=== PATIENT | male | born 1970 | race African-American/Black ===

== ENCOUNTER → 2020-05-17 | Outpatient (CLI) | payer OTHER ==
--- NOTE | 2020-05-17 16:08 | RAD ---
SHOULDER 2+V LEFT DATE: 05/17/2020 12:00 AM INDICATION: Reason: SHOULDER PAIN FOR 1 YEAR / Spl. Instructions: / History: COMPARISON: None. FINDINGS: Bones: There is no evidence of acute fracture or dislocation. Joints: The joint spaces are normal. The acromiohumeral distance is not narrowed. Miscellaneous: No abnormal soft tissue calcifications in the shoulder. IMPRESSION: Normal exam Electronically signed by: Dani Dumont MD (05/17/2020 4:05 PM) [id number]
== END ==
LOC: RAD 11:59
PROVIDERS: ATTEND Physician Assistant
DX: M25.512 Pain in left shoulder (principal)
CPT/HCPCS: 73030

== ENCOUNTER 2020-06-25 12:09 | Emergency (ER) | payer OTHER ==
[~2020-06-25] VITALS: Ht 185.4 cm; Wt 85.0 kg
[2020-06-25 12:20] VITALS: BP 134/79
[2020-06-25] MEDS ORDERED: METOCLOPRAMIDE HCL 10 MG/2 ML VIAL. IVP ONE (12:45)
[2020-06-25] MEDS ORDERED: IV NORMAL SALINE 1,000ML 1,000 ML IV ONE (12:45)
[2020-06-25] MEDS ORDERED: KETOROLAC 30 MG/ML VIAL. IVP ONE (12:45)
[2020-06-25] MEDS ORDERED: diphenhydrAMINE 50 MG/ML VIAL IVP ONE (12:45)
--- NOTE | 2020-06-25 13:22 | RAD ---
CT Head W/O Contrast: History: Reason: NON TRAUMATIC MIGRANE HEADACHE RT ORBIT AREA TO OCCIPITAL REGION Comparison: none Axial images were obtained without contrast. The sandoval and white matter appears normal and symmetrical for the patients age. There is no mass effect, extraaxial fluid collections or hydrocephalus. There is no gross bleed. There is no focal loss of sandoval-white matter distinction to suggest acute ischemia, i.e. stroke. Impression: No acute findings. RS Compliance Statement: One or more of the following individualized dose reduction techniques were utilized for this examination: 1. Automated exposure control 2. Adjustment of the mA and/or kV according to patient size 3. Use of iterative reconstruction technique Electronically signed by: Ulices Ren III, MD (06/25/2020 1:19 PM) [facility]
--- NOTE | 2020-06-25 13:44 | PHYS DOC ---
Past History Past Medical History: No Pertinent History (ASHLEY KEYES APRN) Additional Past Surgical Histo: Eye surgery as child, hernia repair, ORIF ankle (ASHLEY KEYES APRN) Alcohol Use: None (ASHLEY KEYES APRN) Adult General Chief Complaint Chief Complaint: EYE PROBLEMS HPI HPI Patient 50 yo male presents with c/o headache around rt orbit that radiated to occipital area x past 4 days, states he took 2 excedrine OTC pain meds yesterday without relief, is worried about his rt eye because it started turning red this am with mild irritation that was relieved with visine OTC eye drops. pt denies visual changes or photophobia. pt denies nausea vomiting or diarrhea, fever or c hills, nasal congestion, cough, shortness of breath or chest discomfort. pt denies need for covid testing (ASHLEY KEYES APRN) Review of Systems Review of Systems 14 body systems of review of systems have been reviewed. See HPI for pertinent positives and negative responses, otherwise all other systems are negative, nonpertinent or noncontributory. (ASHLEY KEYES APRN) Current Medications Current Medications Current Medications Medications (Trade) Dose Ordered Sig/Shanice Start Time Stop Time Status Last Admin Dose Admin Diphenhydramine HCl (Benadryl) 50 mg 1X ONCE 06/25/20 12:45 06/25/20 12:46 DC 06/25/20 12:54 50 MG Ketorolac Tromethamine (Toradol 30mg Vial) 30 mg 1X ONCE 06/25/20 12:45 06/25/20 12:46 DC 06/25/20 12:53 30 MG Metoclopramide HCl (Reglan Vial) 10 mg 1X ONCE 06/25/20 12:45 06/25/20 12:46 DC 06/25/20 12:51 10 MG Sodium Chloride 1,000 ml @ 1,000 mls/hr 1X ONCE 06/25/20 12:45 06/25/20 13:44 06/25/20 12:49 1,000 MLS/HR (ASHLEY KEYES APRN) Allergies Allergies Allergies Coded Allergies Type Severity Reaction Last Updated Verified No Known Drug Allergies 06/25/20 No (ASHLEY KEYES APRN) Physical Exam Physical Exam Constitutional: Well developed, well nourished, no acute distress, non-toxic appearance. [] HENT: Normocephalic, atraumatic, bilateral external ears normal, oropharynx moist, no oral exudates, nose normal. [] Eyes: PERRLA, EOMI, no discharge. conjunctival irritation and redness rt eye 2 o'clock to 4 o;clock position, no tearing or drainage noted. pupils 3mm. Neck: Normal range of motion, no tenderness, supple, no stridor. [] Cardiovascular:Heart rate regular rhythm, no murmur [] Lungs & Thorax: Bilateral breath sounds clear to auscultation [] Abdomen: Bowel sounds normal, soft, no tenderness, no masses, no pulsatile masses. [] Skin: Warm, dry, no erythema, no rash. [] Back: No tenderness, no CVA tenderness. [] Extremities: No tenderness, no cyanosis, no clubbing, ROM intact, no edema. [] Neurologic: Alert and oriented X 3, normal motor function, normal sensory function, no focal deficits noted. [] Psychologic: Affect normal, judgement normal, mood normal. [] (ASHLEY KEYES APRN) Current Patient Data Vital Signs Vital Signs Date Time Temp Pulse Resp B/P (MAP) Pulse Ox O2 Delivery O2 Flow Rate FiO2 12/5/20 12:20 98.6 90 18 134/79 (97) 99 Room Air (ASHLEY KEYES APRN) EKG EKG [] (ASHLEY KEYES APRN) Radiology/Procedures Radiology/Procedures [] (ASHLEY KEYES APRN) Heart Score Risk Factors: Risk Factors: DM, Current or recent (<one month) smoker, HTN, HLP, family history of CAD, obesity. Risk Scores: Risk Factors: DM, Current or recent (<one month) smoker, HTN, HLP, family hist ory of CAD, obesity. (ASHLEY KEYES APRN) Course & Med Decision Making Course & Med Decision Making Pertinent Labs and Imaging studies reviewed. (See chart for details) 50 yo male vitals reviewed, presents with headache and rt eye redness. visual acuity performed by ED nursing OS 20/25, OD 20/30, OU 20/20. physical exam rt eye without visual deficits, conjunctivitis vs subconjunctival hemorrhage, headache cocktail IV initiated, CT head read negative for acute process by house radiologist interpretation, revaluation of pt, pain improved from 9/10 to 0/10 pain, pt reports full relief. Discussed home treatment of rt eye conjunctiva, pt gave verbal understanding of home care instructions, RTER precautions and concerns, had no other questions or concerns , pt d/c to home without incident. Dx, Migrane Headache without aura, subconjunctival hemorrhage rt eye vs conjunctivitis. (ASHLEY KEYES APRN) Course & Med Decision Making I have reviewed the SINGING TEACHER's note and plan of care. I personally saw and evaluated patient and repeated certain aspects of history and physical exam. I agree with the clinical impression, plan, and disposition. (MELVA ADAM DO) Dragon Disclaimer Dragon Disclaimer This electronic medical record was generated, in whole or in part, using a voice recognition dictation system. (ASHLEY KEYES APRN) Departure Departure: Impression: Primary Impression: Migraine Additional Impression: Conjunctivitis Disposition: 01 DC HOME SELF CARE/HOMELESS Condition: IMPROVED Referrals: ANGY CENTENO (PCP) Patient Instructions: Conjunctivitis (Viral and Bacterial), Migraine Headache Additional Instructions: You were seen today for a migraine headache, you also have a conjunctivitis of the right eye, I believe this is viral in nature, please use warm compresses to your eye 2-3 times per day for approximately 10 minutes each time, use good handwashing while your eye remains red, follow-up with an shower maid if the redness continues, return to the emergency department for worsening symptoms, a sudden change in vision, or other concerns. EMERGENCY DEPARTMENT GENERAL DISCHARGE INSTRUCTIONS Thank you for coming to [facility] (ED) today and trusting us with you care. We trust that you had a positivie experience in our Emergency Department. If you wish to speak to the department management, you may call the director at [phone]. YOUR FOLLOW UP INSTRUCTIONS ARE FOLLOWS: 1. Do you have a private Doctor? If you do not have a private doctor, please ask for a resource list of physicians or clinics that may be able to assist you with follow up care. 2. The Emergency Physician has interpreted your x-rays. The X-Ray specialist will also review them. If there is a change in the findings, you will be notified in 48 hours when at all possible. 3. A lab test or culture has been done, your results will be reviewed and you will be notified if you need a change in treatment. ADDITIONAL INSTRUCTIONS AND INFORMATION: 1. Your care today has been supervised by a physician who is specially trained in emergency care. Many problems require more than one evaluation for a complete diagnosis and treatment. We recommend that you schedule your follow up appointment as recommended to ensure complete treatment of you illness or injury. If you are unable to obtain follow up care and continue to have a problem, or if your condition worsens, we recommend that you return to the ED. 2. We are not able to safely determine your condition over the phone nor are we able to give sound medical advice over the phone. For these safety reasons, if you call for medical advice we will ask you to come to the ED for further evaluation. 3. If you have any questions regarding these discharge instructions please call the ED at [phone]. SAFETY INFORMATION: In the interest of safety, wellness, and injury prevention; we encourage you to wear your sealbelt, if you smoke; quite smoking, and we encourage family to use a protective helmet for bicycling and other sporting events that present an increased risk for head injury. IF YOUR SYMPTOMS WORSEN OR NEW SYMPTOMS DEVELOP, OR YOU HAVE CONCERNS ABOUT YOUR CONDITION; OR IF YOUR CONDITION WORSENS WHILE YOU ARE WAITING FOR YOUR FOLLOW UP APPOINTMENT; EITHER CONTACT YOUR PRIMARY CARE DOCTOR, THE PHYSICIAN WHOSE NAME AND NUMBER YOU WERE GIVEN, OR RETURN TO THE ED IMMEDIATELY. Problem Qualifiers Primary Impression: Migraine Migraine type: without aura Status migrainosus presence: without status migrainosus Intractability: not intractable Qualified Codes: G43.009 - Migraine without aura, not intractable, without status migrainosus Additional Impression: Conjunctivitis Conjunctivitis type: acute Acute conjunctivitis type: unspecified Latera lity: right Qualified Codes: H10.31 - Unspecified acute conjunctivitis, right eye ASHLEY KEYES APRN Jun 25, 2020 13:44 MELVA ADAM DO Jun 26, 2020 13:38
== END 2020-06-25 13:55 | disposition home or self-care (01) ==
LOC: ER 12:09
DX: G43.009 Migraine without aura, not intractable, without status migrainosus (principal); H10.31 Unspecified acute conjunctivitis, right eye
CPT/HCPCS: 70450; 96361; 96374; 96375; 99284; J1200; J1885; J2765; J7030

== ENCOUNTER 2020-08-01 09:24 | Emergency (ER) | payer SELFPAY ==
[~2020-08-01] VITALS: Ht 182.9 cm; Wt 85.0 kg
[2020-08-01 09:33] VITALS: BP 111/78
[2020-08-01] MEDS ORDERED: PRED20TA PO (09:49)
[2020-08-01] MEDS ORDERED: CYCL5TAB PO (09:49)
--- NOTE | 2020-08-01 09:49 | PHYS DOC ---
Past History Past Medical History: No Pertinent History Past Surgical History: No Surgical History Additional Past Surgical Histo: Eye surgery as child, hernia repair, ORIF ankle Alcohol Use: None Adult General Chief Complaint Chief Complaint: BACK PAIN - NO INJURY HPI HPI Patient is a 50-year-old male presenting for back pain. Injury was at work 3 days ago when he was bending over and lifting boxes. Patient states after long day of heavy lifting, he had tightness and pain on the left lower portion of his back. This is progressed and worsened over the weekend. Patient finally tried to intervene this morning and took x2 doses of unknown strength ibuprofen with minimal relief prompting him to come into our ER for evaluation. He has no history of spinal surgeries, no red flags for back pain, no fever, no saddle anesthesia or bladder or bowel incontinence. Twisting motions and direct palpation make worse Review of Systems Review of Systems Fourteen body systems of review of systems have been reviewed. See HPI for pertinent positives and negative responses, other marquez all other systems are negative, non-pertinent or non-contributory Allergies Allergies Allergies Coded Allergies Type Severity Reaction Last Updated Verified No Known Drug Allergies 06/25/20 No Physical Exam Physical Exam Constitutional: Well developed, well nourished, no acute distress, non-toxic appearance. HENT: Normocephalic, atraumatic, bilateral external ears normal, oropharynx moist, no oral exudates, nose normal. Eyes: PERRLA, EOMI, conjunctiva normal, no discharge. Neck: Normal range of motion, no tenderness, supple, no stridor. Cardiovascular: Heart rate regular per monitor Lungs & Thorax: No respiratory distress or accessory muscle use, bilateral chest rise Abdomen: Abdomen soft, non-tender, bowel sounds present in all quadrants, no guarding or rebound, nonacute abdomen. Skin: Warm, dry, no erythema, no rash. Back: No midline tenderness, no CVA tenderness. Palpable tight muscle belly left side of midline and paralumbar area reproducing exact pain patient is feeling without radiation, negative straight leg test, negative pelvic tilt Extremities: No tenderness, no cyanosis, no clubbing, ROM intact, no edema. Neurologic: Alert and oriented X 3, normal motor & sensory function, no focal deficits noted. Patellar and patellar reflexes 2+ bilaterally Psychologic: Affect normal, judgement normal, mood normal. Current Patient Data Vital Signs Vital Signs Date Time Temp Pulse Resp B/P (MAP) Pulse Ox O2 Delivery O2 Flow Rate FiO2 08/01/20 09:33 97.1 94 18 111/78 (89) 98 EKG EKG [] Radiology/Procedures Radiology/Procedures [] Heart Score HEART Score for Chest Pain: HEART Score for Chest Pain Response (Comments) Value History Slighlty/Non-Suspicious 0 Age >45 - < 65 1 Risk Factors 1 or 2 Risk Factors 1 Total 2 Risk Factors: Risk Factors: DM, Current or recent (<one month) smoker, HTN, HLP, family history of CAD, obesity. Risk Scores: Risk Factors: DM, Current or recent (<one month) smoker, HTN, HLP, family history of CAD, obesity. Course & Med Decision Making Course & Med Decision Making ABCs unremarkable and ambulatory well-appearing male No red flag signs or symptoms of back pain, patient is likely experiencing paralumbar spinal muscle strain from increased exertion and high risk lifting activity at work without neurologic symptoms Supportive care advised. Patient also advised to follow-up with primary care physician for ongoing care and repeat evaluation in outpatient setting, disclose he might benefit from outpatient physical therapy etc. Strict return precautions were discussed with good understanding by patient, all questions and concerns addressed prior to ER departure Dragon Disclaimer Dragon Disclaimer This electronic medical record was generated, in whole or in part, using a voice recognition dictation system. Departure Departure: Impression: Primary Impression: Lower back pain Disposition: 01 DC HOME SELF CARE/HOMELESS Condition: GOOD Referrals: PCPJÚNIOR (PCP) Patient Instructions: Back Exercises, Back Injury Prevention Additional Instructions: You were evaluated in the Emergency Department today for back pain. Your evaluation suggests no acute abnormalities which require further intervention at this time. Your pain is most likely due to to a musculoskeletal cause that should improve with supportive care. - Move around as tolerated but avoiding heavy lifting. ``Bed rest is not recommended nor is it the best treatment for low back pain. - Medications will help control your discomfort: - -Ibuprofen (800 mg every 8 hours for pain) with food. - -Tylenol - Do not drink alcohol, drive a car, operate machinery, or get up on ladders or heights when taking any prescribed pain medications. - Do not drive home if you received prescribed pain medications here in the ED. Return to the ED immediately if you develop any of the following problems: - Leaking urine or difficulty urinating; - Inability to control your bowels; - New numbness or weakness in your legs or numbness between your legs; - Inability to walk - Fever Scripts Prednisone (PREDNISONE) 20 Mg Tablet 40 MG PO DAILY for BACK SPASM for 3 Days, #6 TAB Prov: MELVA ADAM DO 08/01/20 Cyclobenzaprine Hcl (CYCLOBENZAPRINE HCL) 5 Mg Tablet 1 TAB PO QHS for MUSCLE SPASM, #10 TAB Prov: MELVA ADAM DO 08/01/20 MELVA ADAM DO Aug 01, 2020 09:49
== END 2020-08-01 09:57 | disposition home or self-care (01) ==
LOC: ER 09:34
DX: M54.5 Low back pain (principal); Z98.890 Other specified postprocedural states
CPT/HCPCS: 99283

== ENCOUNTER 2020-09-20 11:23 | Emergency (ER) | payer OTHER ==
[~2020-09-20] VITALS: Ht 182.9 cm; Wt 79.0 kg
[2020-09-20 11:23] VITALS: BP 111/78
[~2020-09-20 11:23] MED LIST: CYCL5TAB PO; PRED20TA PO
[2020-09-20] MEDS ORDERED: TETRACAINE 0.5% OPHTH SOLUTION 4ML BOTTLE. OD ONE (12:15)
[2020-09-20] MEDS ORDERED: FLUORESCEIN 1MG EYE STRIP. OD ONE (12:15)
--- NOTE | 2020-09-20 12:18 | PHYS DOC ---
Past History Past Medical History: No Pertinent History Past Surgical History: No Surgical History Additional Past Surgical Histo: Eye surgery as child, hernia repair, ORIF ankle Alcohol Use: None General Adult EDM: Chief Complaint: EYE PROBLEMS HPI: HPI: Patient is a 50-year-old male coming in with redness to his right eye starting 5 days ago. Patient states he has occasional cough but denies any eye trauma, vomiting, heavy lifting, or eye discharge. Has not had this happen in the past. Patient states he is not taking blood thinners. Says it started in the medial aspect of his right eye and is moved towards the midline. Also 3 days ago noted persistent temporal pain. Patient wears glasses but does not have any contact use. Denies any injuries, other pains, fevers. Review of Systems: Review of Systems: All other systems within normal limits except for as noted in the HPI Current Medications: Current Meds: Current Medications Medications (Trade) Dose Ordered Sig/Shanice Start Time Stop Time Status Last Admin Dose Admin Fluorescein Sodium (Ful-Lay 1mg) 1 strip 1X ONCE 09/20/20 12:15 09/20/20 12:16 Tetracaine HCl (Tetracaine) 1 drop 1X ONCE 09/20/20 12:15 09/20/20 12:16 Allergies: Allergies: Allergies Coded Allergies Type Severity Reaction Last Updated Verified No Known Drug Allergies 06/25/20 No Physical Exam: PE: Constitutional: Well developed, well nourished, no acute distress, non-toxic appearance. [] HENT: Normocephalic, atraumatic, bilateral external ears normal, nose normal. [] Eyes: PERRLA, conjunctiva normal, no discharge. [] Neck: No rigidity, supple, no stridor. [] Cardiovascular: Regular rate and rhythm, brisk cap refill [] Lungs & Thorax: Non labored symmetric respirations, no tachypnea or respiratory distress [] Abdomen: Soft, nondistended. Skin: Warm, dry, no erythema, no rash. [] Back: Unremarkable Extremities: No deformities, range of motion grossly intact, no lower extremity edema [] Neurologic: Alert and oriented X 3, no focal deficits noted. [] Psychologic: Affect normal, judgement normal, mood normal. [] Current Patient Data: Vital Signs: Vital Signs Date Time Temp Pulse Resp B/P (MAP) Pulse Ox O2 Delivery O2 Flow Rate FiO2 09/20/20 11:23 98.2 89 16 106/65 (79) 98 Room Air EKG: EKG: [] Radiology/Procedures: Radiology/Procedures: [] Heart Score: Risk Factors: Risk Factors: DM, Current or recent (<one month) smoker, HTN, HLP, family history of CAD, obesity. Risk Scores: Score 0 - 3: 2.5% MACE over next 6 weeks - Discharge Home Score 4 - 6: 20.3% MACE over next 6 weeks - Admit for Clinical Observation Score 7 - 10: 72.7% MACE over next 6 weeks - Early Invasive Strategies Course & Med Decision Making: Course & Med Decision Making Pertinent Labs and Imaging studies reviewed. (See chart for details) CRP negative, unlikely to be temporal arteritis. Discussed supportive care for subconjunctival hemorrhage. [] Dragon Disclaimer: Dragon Disclaimer: This electronic medical record was generated, in whole or in part, using a voice recognition dictation system. Departure Departure: Impression: Primary Impression: Subconjunctival hemorrhage of right eye Disposition: 01 DC HOME SELF CARE/HOMELESS Condition: STABLE Referrals: PCP,NO (PCP) Patient Instructions: Subconjunctival Hemorrhage Additional Instructions: [facility] for primary care follow-up Address: [address] [place] [id number] LEIGHA MAK MD Sep 20, 2020 12:18
[2020-09-20 12:53] LABS: CALCIUM 8.8 mg/dL (8.5-10.1); GFR 94.9; POTASSIUM 3.7 mmol/L (3.5-5.1)
[2020-09-20 12:54] LABS: BASO % 1 % (0-3); EOS # 0.1 x10^3/uL (0.0-0.7); EOS % 2 % (0-3); HEMATOCRIT 46.9 % (39.0-53.0); HEMOGLOBIN 15.7 g/dL (13.0-17.5); LYMPH # 1.7 x10^3/uL (1.0-4.8); LYMPH % 41 % (24-48); MEAN CORPUSCULAR HEMOGLOBIN 30 pg (25-35); MEAN CORPUSCULAR HGB CONC 33 g/dL (31-37); MEAN CORPUSCULAR VOLUME 89 fL (79-100); MONO # 0.4 x10^3/uL (0.0-1.1); MONO % 10 % (0-9); NEUT % 46 % (31-73); PLATELET COUNT 246 x10^3/uL (140-400); RED BLOOD COUNT 5.28 x10^6/uL (4.30-5.70); RED CELL DISTRIBUTION WIDTH 12.9 % (11.5-14.5); WHITE BLOOD COUNT 4.2 x10^3/uL (4.0-11.0)
[2020-09-20 12:59] LABS: ALBUMIN 3.8 g/dL (3.4-5.0); C REACTIVE PROTEIN 0.6 mg/L (0-3.3); TOTAL BILIRUBIN 0.4 mg/dL (0.2-1.0); TOTAL PROTEIN 7.8 g/dL (6.4-8.2)
== END 2020-09-20 13:35 | disposition home or self-care (01) ==
LOC: ER 11:23
DX: H11.31 Conjunctival hemorrhage, right eye (principal); R05 Cough; Z98.890 Other specified postprocedural states
CPT/HCPCS: 36415; 80053; 85025; 85610; 86140; 99283

== ENCOUNTER → 2021-03-14 | Outpatient (CLI) | payer OTHER ==
--- NOTE | 2021-03-14 14:58 | RAD ---
EXAM: Cervical spine, 4 views. HISTORY: Pain. COMPARISON: None. FINDINGS: 4 views of the cervical spine are obtained. There is degenerative endplate remodeling with disc space narrowing and osteophytosis at C5-C6 and C6-C7. There is multilevel facet arthropathy. IMPRESSION: Degenerative change predominantly at C5-C7. No acute osseous finding. Electronically signed by: Saniya Booth MD (03/14/2021 2:56 PM) [id number]
== END ==
LOC: RAD 14:10
PROVIDERS: ATTEND Physician Assistant
DX: M47.812 Spondylosis without myelopathy or radiculopathy, cervical region (principal); M48.02 Spinal stenosis, cervical region; M25.78 Osteophyte, vertebrae; M48.8X2 Other specified spondylopathies, cervical region
CPT/HCPCS: 72040